=== PATIENT | male | born 1945 | race Caucasian/White ===

== ENCOUNTER 2016-11-01 06:16 | Day surgery (SDC) | payer MEDICARE ==
[~2016-11-01] VITALS: Ht 172.7 cm; Wt 81.3 kg
[~2016-11-01 06:16] MED LIST: ASCO-96 PO; BUPR150T13 PO; BUPROPION PO; CALC250T PO; CARV6.252 PO; CHOL10003 PO; FERR325T18 PO; GLUC1TAB27 PO; LEVO100T5 PO; LEVO112T4 PO; LEVOTHYROXINE PO; MULT-125 PO; MULT-658 PO; NADO20TA PO; NADOLOL PO; OMEP-110 PO; OMEPRAZOLE PO
[2016-11-01] MEDS ORDERED: LACTATED RINGERS 1,000 ML IV SCH (07:12)
[2016-11-01 07:31] VITALS: BP 132/85
[2016-11-01] MEDS ORDERED: PROPOFOL 10 MG/ML, 20ML ONE (08:19)
== END 2016-11-01 09:45 ==
LOC: OUT 06:16
PROVIDERS: ATTEND Internal Medicine Gastroenterology
DX: I85.00 Esophageal varices without bleeding (principal); K74.60 Unspecified cirrhosis of liver; K31.7 Polyp of stomach and duodenum; K76.6 Portal hypertension; K31.89 Other diseases of stomach and duodenum; E03.9 Hypothyroidism, unspecified; Z85.038 Personal history of other malignant neoplasm of large intestine
CPT/HCPCS: 43235; 93005; J2704; J7120

== ENCOUNTER 2017-05-24 11:27 | Day surgery (SDC) | payer MEDICARE ==
[2017-05-18 14:56] VITALS: BP 128/72
[~2017-05-24] VITALS: Ht 172.7 cm; Wt 81.8 kg
[2017-05-24] MEDS ORDERED: PROPOFOL 10 MG/ML, 20ML ONE (13:02)
[2017-05-24] MEDS ORDERED: EPHEDRINE 50 MG/ML, 1ML ONE (13:41)
== END 2017-05-24 15:05 ==
LOC: OUT 11:27
PROVIDERS: ATTEND Internal Medicine Gastroenterology
DX: I85.00 Esophageal varices without bleeding (principal); K29.50 Unspecified chronic gastritis without bleeding; K31.7 Polyp of stomach and duodenum; I10 Essential (primary) hypertension; Z72.89 Other problems related to lifestyle
CPT/HCPCS: 43239; 88305; J2704

== ENCOUNTER 2018-08-08 11:29 | Day surgery (SDC) | payer MEDICARE ==
[~2018-08-08] VITALS: Ht 172.7 cm; Wt 84.9 kg
[~2018-08-08 11:29] MED LIST changes: +HYDR25TA11 PO
[2018-08-08] MEDS ORDERED: LACTATED RINGERS 1,000 ML IV SCH (11:37)
[2018-08-08 11:46] VITALS: BP 136/76
[2018-08-08] MEDS ORDERED: PROPOFOL 10 MG/ML, 20ML ONE (12:55)
[2018-08-08] MEDS ORDERED: PROPOFOL 10 MG/ML, 50ML ONE (12:55)
[2018-08-08] MEDS ORDERED: EPHEDRINE 50 MG/ML, 1ML IVPush PRN (14:00)
[2018-08-08] MEDS ORDERED: ONDANSETRON ODT 8 MG PO PRN (14:00)
[2018-08-08] MEDS ORDERED: EPHEDRINE 50 MG/ML, 1ML IM PRN (14:00)
[2018-08-08] MEDS ORDERED: MIDAZOLAM 1 MG/ML, 2ML IV PRN (14:00)
[2018-08-08] MEDS ORDERED: FENTANYL PF 100 MCG/2ML IV PRN (14:00)
[2018-08-08] MEDS ORDERED: ONDANSETRON 2MG/ML, 2ML IV PRN (14:00)
[2018-08-08] MEDS ORDERED: DIPHENHYDRAMINE 50 MG/ML, 1ML IM PRN (14:00)
== END 2018-08-08 15:10 | disposition home or self-care (01) ==
LOC: OUT 11:29
PROVIDERS: ATTEND Internal Medicine Gastroenterology
DX: Z09 Encounter for follow-up examination after completed treatment for conditions other than malignant neoplasm (principal); D12.3 Benign neoplasm of transverse colon; D12.0 Benign neoplasm of cecum; D12.2 Benign neoplasm of ascending colon; D12.4 Benign neoplasm of descending colon; K31.7 Polyp of stomach and duodenum; K29.50 Unspecified chronic gastritis without bleeding; K76.6 Portal hypertension; I85.00 Esophageal varices without bleeding; E03.9 Hypothyroidism, unspecified; Z98.0 Intestinal bypass and anastomosis status; Z86.010 Personal history of colon polyps
CPT/HCPCS: 43239; 45380; 45385; 88305; J2704

== ENCOUNTER 2019-03-14 12:15 | Inpatient (IN) | payer MEDICARE ==
[~2019-03-14] VITALS: Ht 172.7 cm; Wt 78.2 kg
[~2019-03-14 12:15] MED LIST changes: +HYDR-826 PO; -HYDR25TA11 PO
[2019-03-14 13:49] LABS: ALBUMIN 3.9 g/dL (3.4-5.0); ANION GAP 9 mmol/L (5-15); CALCIUM 8.4 mg/dL (8.5-10.1); CHLORIDE 109 mmol/L (98-107)
[2019-03-14 13:50] LABS: MEAN CORPUSCULAR HEMOGLOBIN 27.9 pg (27.5-34.5); MEAN CORPUSCULAR HGB CONC 32.9 g/dL (33.2-36.2); MEAN CORPUSCULAR VOLUME 84.8 fL (81-97); MEAN PLATELET VOLUME 8.1 fL (7.4-10.4); PLATELET COUNT 102 x10^3/uL (130-400); RED BLOOD COUNT 4.92 x10^6/uL (4.38-5.82); RED CELL DISTRIBUTION WIDTH 22.2 % (9.4-14.8)
[2019-03-14 13:52] LABS: ALANINE AMINOTRANSFERASE 35 U/L (12-78); ALKALINE PHOSPHATASE 123 U/L (45-117); BILIRUBIN,TOTAL 1.3 mg/dL (0.2-1.0); CREATININE 1.41 mg/dL (0.7-1.3); TOTAL PROTEIN 7.7 g/dL (6.4-8.2)
--- NOTE | 2019-03-14 13:57 | NUR ---
ACTIVE DIRECTORY SPECIALIST: PT TO ROOM FROM LOBBY, VIA W/C
--- NOTE | 2019-03-14 14:02 | NUR ---
Ashley jospeh in [facility] - 03/14/19 at 1406 by [email or web address] PT AMBULATED TO RESTROOM WITH STEADY GAIT TO PROVIDE URINE SAMPLE. UA COLLECTED AND SENT TO LAB.
--- NOTE | 2019-03-14 14:06 | NUR ---
PT UNABLE TO PROVIDE URINE SAMPLE AT THIS TIME.
--- NOTE | 2019-03-14 14:10 | NUR ---
PT C/O EPIGASTRIC PAIN STARTING LAST NIGHT. HX ESAPHOGEAL VARICIES AND POLYPS. EPISODES OF DIARRHEA AND DRY HEAVES. CONNECTED TO MONITORING. CALL LIGHT IN REACH.
[2019-03-14 14:29] LABS: BASOPHILS % (AUTO) 0 % (0-1); EOSINOPHILS # (AUTO) 0.01 x10^3/uL (0-0.4); EOSINOPHILS % (AUTO) 0 % (1-7); LYMPHOCYTES # (AUTO) 0.21 x10^3/uL (1-3.4); LYMPHOCYTES % (AUTO) 5 % (22-44); MD SCAN; MONOCYTES # (AUTO) 0.11 x10^3/uL (0.2-0.8); MONOCYTES % (AUTO) 2 % (2-9); NEUTROPHILS # (AUTO) 4.27 x10^3/uL (1.8-6.8); NEUTROPHILS % (AUTO) 93 % (42-75)
[2019-03-14] MEDS ORDERED: SODIUM CHLORIDE FLUSH 10ML SYR IVF ONE (14:30)
[2019-03-14] MEDS ORDERED: HYDROmorphone 2 MG/ML, 1ML IVPush PRN (14:30)
[2019-03-14] MEDS ORDERED: ONDANSETRON 2MG/ML, 2ML IVPush ONE (14:30)
--- NOTE | 2019-03-14 14:53 | NUR ---
REPORT GIVEN GENNA CONDE.
[2019-03-14] MEDS ORDERED: ONDANSETRON 2MG/ML, 2ML ONE (15:21)
[2019-03-14] MEDS ORDERED: HYDROmorphone 1 MG/ML, 1ML INJ ONE (15:21)
--- NOTE | 2019-03-14 15:21 | NUR ---
CT WAITING FOR IV ACCESS
--- NOTE | 2019-03-14 15:34 | NUR ---
TASK RN: ASKED BY PRIMARY RNGENNA TO START IV AND MEDICATE PATIENT. VS STABLE PT IS 97% RA. AT BEDSIDE. PT GIVEN A BLANKET AND PILLOW. PT READY FOR CT. PRIMARY RN GENNA AWARE.
[2019-03-14] MEDS ORDERED: OMNIPAQUE 350 MG/ML, 100ML BOTTLE ONE (15:55)
[2019-03-14] MEDS ORDERED: morphine SULFATE 10 MG/ML, 1ML IVPush PRN (17:30)
[2019-03-14] MEDS ORDERED: ONDANSETRON 2MG/ML, 2ML IVPush PRN (17:30)
[2019-03-14] MEDS ORDERED: POLYETHYLENE GLYCOL 17 GM PACKET PO PRN (17:30)
[2019-03-14] MEDS ORDERED: ONDANSETRON ODT 4 MG PO PRN (17:30)
[2019-03-14] MEDS ORDERED: DOCUSATE 100 MG CAPSULE PO PRN (17:30)
[2019-03-14 18:15] LABS: TRIGLYCERIDES 84 mg/dL (50-200)
[2019-03-14] MEDS: LACTATED RINGERS 1,000 ML IV SCH (18:45)
[2019-03-14 18:56] VITALS: BP 153/84
[2019-03-14] MEDS: HEPARIN 25,000 UNITS/500ML PMX 500 ML IV PRN (20:59)
[2019-03-15 02:03] VITALS: BP 128/65
[2019-03-15] MEDS: HEPARIN 5,000 UNITS/ML, 1ML IV PRN (04:09)
[2019-03-15] MEDS: LACTATED RINGERS 1,000 ML IV SCH (04:15)
[2019-03-15 07:14] VITALS: BP 144/86
[2019-03-15 08:06] LABS: ALANINE AMINOTRANSFERASE 26 U/L (12-78); ANION GAP 7 mmol/L (5-15); CALCIUM 8.1 mg/dL (8.5-10.1); CHLORIDE 110 mmol/L (98-107); CREATININE 1.09 mg/dL (0.7-1.3)
[2019-03-15 08:08] LABS: ALKALINE PHOSPHATASE 87 U/L (45-117); BILIRUBIN,TOTAL 0.6 mg/dL (0.2-1.0); TOTAL PROTEIN 6.5 g/dL (6.4-8.2)
[2019-03-15 08:44] LABS: MEAN CORPUSCULAR HEMOGLOBIN 28.1 pg (27.5-34.5); MEAN CORPUSCULAR VOLUME 85.4 fL (81-97); MEAN PLATELET VOLUME 7.9 fL (7.4-10.4); PLATELET COUNT 74 x10^3/uL (130-400); RED BLOOD COUNT 4.46 x10^6/uL (4.38-5.82); RED CELL DISTRIBUTION WIDTH 22.5 % (9.4-14.8)
[2019-03-15 08:46] LABS: BASOPHILS # (AUTO) 0.01 x10^3/uL (0-0.1); BASOPHILS % (AUTO) 0 % (0-1); EOSINOPHILS # (AUTO) 0.03 x10^3/uL (0-0.4); EOSINOPHILS % (AUTO) 1 % (1-7); LYMPHOCYTES # (AUTO) 0.53 x10^3/uL (1-3.4); LYMPHOCYTES % (AUTO) 23 % (22-44); MD SCAN; MONOCYTES # (AUTO) 0.34 x10^3/uL (0.2-0.8); MONOCYTES % (AUTO) 14 % (2-9); NEUTROPHILS # (AUTO) 1.43 x10^3/uL (1.8-6.8); NEUTROPHILS % (AUTO) 61 % (42-75)
[2019-03-15] MEDS: BUPROPION SR 150 MG TABLET PO SCH (08:59)
[2019-03-15] MEDS: LEVOTHYROXINE 100 MCG TABLET PO SCH (08:59)
[2019-03-15] MEDS: MULTIVITAMIN 1 TABLET PO SCH (08:59)
[2019-03-15] MEDS: CARVEDILOL 6.25 MG TABLET PO SCH (09:00)
[2019-03-15] MEDS ORDERED: PANTOPRAZOLE 40 MG IV IVPush SCH (09:00)
[2019-03-15 11:34] LABS: CLOSTRIDIUM DIFFICILE ANTIGEN NEGATIVE; CLOSTRIDIUM DIFFICILE TOXIN NEGATIVE (Negative)
[2019-03-15 13:07] VITALS: BP 106/69
[2019-03-15 18:40] VITALS: BP 143/61
[2019-03-15] MEDS: HEPARIN 25,000 UNITS/500ML PMX 500 ML IV PRN (21:22)
[2019-03-15] MEDS ORDERED: ZOLP10TA PO (22:53)
[2019-03-15] MEDS ORDERED: ZOLPIDEM 10MG TABLET PO PRN (23:30)
[2019-03-16 02:15] VITALS: BP 138/84
[2019-03-16 05:07] LABS: MEAN CORPUSCULAR HEMOGLOBIN 27.4 pg (27.5-34.5); MEAN CORPUSCULAR HGB CONC 32.3 g/dL (33.2-36.2); MEAN CORPUSCULAR VOLUME 84.7 fL (81-97); MEAN PLATELET VOLUME 8.5 fL (7.4-10.4); PLATELET COUNT 82 x10^3/uL (130-400)
[2019-03-16 05:17] LABS: ALBUMIN 3.4 g/dL (3.4-5.0); ANION GAP 7 mmol/L (5-15); CALCIUM 8.3 mg/dL (8.5-10.1); CHLORIDE 109 mmol/L (98-107)
[2019-03-16 05:20] LABS: ALANINE AMINOTRANSFERASE 27 U/L (12-78); ALKALINE PHOSPHATASE 88 U/L (45-117); BILIRUBIN,TOTAL 0.7 mg/dL (0.2-1.0); CREATININE 1.06 mg/dL (0.7-1.3); TOTAL PROTEIN 7.1 g/dL (6.4-8.2)
[2019-03-16 05:47] LABS: MD YES
[2019-03-16 05:49] LABS: BAND#(MANUAL) 0.65 x10^3/uL; BANDS%(MANUAL) 25 % (0-7); EOS#(MANUAL) 0.03 x10^3/uL (0.0-0.4); EOS% (MANUAL) 1 % (1-7); LYMPHS% (MANUAL) 23 % (22-44); MONOS#(MANUAL) 0.42 x10^3/uL (0.3-2.7); MONOS% (MANUAL) 16 % (2-9); SEG#(MANUAL) 0.91 x10^3/uL (1.8-6.8); SEGS% (MANUAL) 35 % (42-75)
[2019-03-16 05:50] LABS: <PLATELET ESTIMATE> DECREASED; <PLT MORPHOLOGY> NORMAL PLT MORPH; ANISOCYTOSIS 1+; OVALOCYTES 1+
[2019-03-16] MEDS ORDERED: PANTOPROZOLE 40MG TABLET PO SCH (06:00)
[2019-03-16] MEDS: HEPARIN 5,000 UNITS/ML, 1ML IV PRN (06:03)
[2019-03-16] MEDS ORDERED: APIX5TAB PO (07:42)
[2019-03-16 07:51] VITALS: BP 149/83
[2019-03-16] MEDS ORDERED: APIXABAN 5 MG TABLET PO SCH (09:00)
[2019-03-16] MEDS: BUPROPION SR 150 MG TABLET PO SCH (09:57)
[2019-03-16] MEDS: CARVEDILOL 6.25 MG TABLET PO SCH (09:57)
[2019-03-16] MEDS: LEVOTHYROXINE 100 MCG TABLET PO SCH (09:57)
[2019-03-16] MEDS: MULTIVITAMIN 1 TABLET PO SCH (09:57)
== END 2019-03-16 12:34 | disposition home or self-care (01) | DRG 393 ==
LOC: ED 15:36 → EDIP 16:21 → 4NW 17:26 → DCLOUNGE 03-16 12:22
PROVIDERS: ADMIT Internal Medicine; ATTEND Family Medicine
DX: K55.069 Acute infarction of intestine, part and extent unspecified (principal); K85.90 Acute pancreatitis without necrosis or infection, unspecified; I81 Portal vein thrombosis; K56.600 Partial intestinal obstruction, unspecified as to cause; D61.818 Other pancytopenia; N17.9 Acute kidney failure, unspecified; K76.6 Portal hypertension; D50.9 Iron deficiency anemia, unspecified; E03.9 Hypothyroidism, unspecified; F42.9 Obsessive-compulsive disorder, unspecified; I10 Essential (primary) hypertension; K74.60 Unspecified cirrhosis of liver; Z85.038 Personal history of other malignant neoplasm of large intestine; Z85.46 Personal history of malignant neoplasm of prostate; Z90.49 Acquired absence of other specified parts of digestive tract; Z90.79 Acquired absence of other genital organ(s); K52.9 Noninfective gastroenteritis and colitis, unspecified; Z91.013 Allergy to seafood; Z88.8 Allergy status to other drugs, medicaments and biological substances; Z91.048 Other nonmedicinal substance allergy status
CPT/HCPCS: 36415; 74021; 74177; 80053; 83690; 84478; 85025; 85520; 87324; 96374; 96375; G0378; J1170; J1644; J2405; Q9967; C9113; J2270; J7120

== ENCOUNTER → 2020-07-29 | Outpatient (CLI) | payer MEDICARE ==
[~2020-07-29] MED LIST changes: +APIX5TAB PO; +DEGA80VI3 INJ; +DENO120V INJ; +ENZA80TA PO; +Iron PO; -NADO20TA PO; +NADO20TA2 PO; +TAMS-11 PO; +URSO300C27 PO; +ZOLP10TA PO
== END | disposition home or self-care (01) ==
LOC: STAR 11:06
PROVIDERS: ATTEND Internal Medicine Gastroenterology
DX: Z01.818 Encounter for other preprocedural examination (principal); I85.00 Esophageal varices without bleeding; R20.8 Other disturbances of skin sensation; I44.0 Atrioventricular block, first degree; R94.31 Abnormal electrocardiogram [ECG] [EKG]; I49.3 Ventricular premature depolarization; Z20.822 Contact with and (suspected) exposure to COVID-19
CPT/HCPCS: 93005; U0003; U0005

== ENCOUNTER 2020-08-04 05:52 | Day surgery (SDC) | payer MEDICARE ==
[2020-07-29 12:22] VITALS: BP 129/78
[~2020-08-04] VITALS: Ht 172.7 cm; Wt 83.0 kg
[2020-08-04] MEDS ORDERED: LACTATED RINGERS 1,000 ML IV SCH (06:30)
[2020-08-04] MEDS ORDERED: CHLORHEXIDINE 15 ML UDC PO ONE (06:30)
[2020-08-04 06:32] VITALS: BP 129/78
[2020-08-04] MEDS ORDERED: PROPOFOL 50 ML ONE (07:13)
[2020-08-04] MEDS ORDERED: PROPOFOL 10 MG/ML, 20ML ONE ×2 (07:14)
[2020-08-04] MEDS ORDERED: FENTANYL PF 100 MCG/2ML IV PRN (07:30)
[2020-08-04] MEDS ORDERED: EPHEDRINE 50 MG/ML, 1ML IM PRN (07:30)
[2020-08-04] MEDS ORDERED: morphine SULFATE 10 MG/ML, 1ML IVPush PRN (07:30)
[2020-08-04] MEDS ORDERED: LABETALOL 5MG/ML, 20ML IV PRN (07:30)
[2020-08-04] MEDS ORDERED: PROMETHAZINE 25 MG/ML, 1ML IVPush PRN (07:30)
[2020-08-04] MEDS ORDERED: ONDANSETRON 2MG/ML, 2ML IVPush PRN (07:30)
[2020-08-04] MEDS ORDERED: OXYcodone 5 MG/5 ML ORAL.SOL UDC PO PRN (07:30)
[2020-08-04] MEDS ORDERED: DIAZEPAM 5 MG/ML, 2ML IVPush PRN (07:30)
[2020-08-04] MEDS ORDERED: EPHEDRINE 50 MG/ML, 1ML IVPush PRN (07:30)
[2020-08-04] MEDS ORDERED: DIPHENHYDRAMINE 50 MG/ML, 1ML IVPush PRN (07:30)
== END 2020-08-04 09:40 | disposition home or self-care (01) ==
LOC: OUT 05:52
PROVIDERS: ATTEND Internal Medicine Gastroenterology
DX: I85.00 Esophageal varices without bleeding (principal); K52.89 Other specified noninfective gastroenteritis and colitis; K63.5 Polyp of colon; K31.7 Polyp of stomach and duodenum; E03.9 Hypothyroidism, unspecified; K21.9 Gastro-esophageal reflux disease without esophagitis; Z91.013 Allergy to seafood; Z88.8 Allergy status to other drugs, medicaments and biological substances; Z91.048 Other nonmedicinal substance allergy status; Z79.899 Other long term (current) drug therapy; Z90.49 Acquired absence of other specified parts of digestive tract; Z91.040 Latex allergy status; Z91.018 Allergy to other foods; Z85.46 Personal history of malignant neoplasm of prostate; Z98.890 Other specified postprocedural states; Z72.89 Other problems related to lifestyle
CPT/HCPCS: 43244; 45380; 45385; 88305; J2704; J7120

== ENCOUNTER 2020-09-20 08:46 | Outpatient (CLI) | payer MEDICARE ==
[2020-09-20] MEDS ORDERED: LIDOCAINE-MPF 1%, 5ML ONE (08:52)
[2020-09-20] MEDS ORDERED: ALBUMIN HUMAN 25%, 25GM/100ML ONE (17:10)
== END 2020-09-20 23:59 | disposition home or self-care (01) ==
LOC: RAD 08:46
PROVIDERS: ATTEND Internal Medicine Gastroenterology
DX: K70.31 Alcoholic cirrhosis of liver with ascites (principal); I85.00 Esophageal varices without bleeding; I81 Portal vein thrombosis; Z85.038 Personal history of other malignant neoplasm of large intestine; Z85.46 Personal history of malignant neoplasm of prostate
CPT/HCPCS: 49083; 82042; 82150; 83615; 84157; 87070; 87205; 88112; 88305; 89051; P9047